=== PATIENT | female | born 1930 | race Caucasian/White ===

== ENCOUNTER 2016-04-22 16:23 | Observation (INO) | payer MEDICARE, BC ==
--- NOTE | 2016-04-22 16:39 | HP ---
Chief Complaint - Chief Complaint Date of Service: 04/22/16 Time of Service: 16:38 Chief Complaint: loss of appetite and difficulty in eating and drinking. History of Present Illness: Patient is a 85-year-old WF who lives at home with a history of Mnire's disease, osteoporosis, B12 deficiency, chronic low back pain who had URI symptoms for the last 3-4 days and had difficulty in eating and drinking since then. She lost 5-6 pounds due to poor oral intake and was significantly orthostatic in the office with a systolic dropping by 30 mm Hg while standing. She was admitted for further care and treatment with IV fluids on 04/22/2015. Lying BP 92/60 HR 66/m; sitting BP 76/60 HR 76/m; standing 62/58 HR 92/m. - Patient's Past Medical History Additional info: PAST MEDICAL HISTORY: Mnire's disease 2000 LT shunt placed in 2002; osteoporosis, chronic LBP, HLD, B12 deficiency, RUL pneumonia 08/2014. . Patient History - Cancer: No Hx of Cancer Additional Info: PAST SURGICAL HISTORY: Appendectomy 1944; all teeth extraction 1959'; S/P KEY/BSO 1964; LT shunt placed for Mnire's disease 2002; bilateral cataract surgery 2004; RT arthroscopic knee surgery 2005; epidural steroid shots right-sided L4-L5 2007; lumbar disc fusion 2007; lithotripsy 2010. - Family History Father Family History - Medical: , Other Family History - Cardiac/Respiratory: History Unknown Mother Family History - Medical: , No pertinent hx - Social History Living Situations: alone - Smoking Status: Never smoker Alcohol Use: none Drug Use: none Review Of Systems (GEN) - Review of Systems Generalized/Overall Review: Present: Weakness, Fatigue. Absent: Chills, Fever Respiratory: Present: Cough. Absent: Shortness of Breath Cardiac: Absent: Chest Pain, Edema, Palpitations Abdominal: Present: Nausea, Vomiting, Constipation - occassional Musculoskeletal: Present: Back Pain Neurological: Absent: Anxiety, Depressed Immunizations: IMMUNIZATION HX Immunizations Up to Date No History of Influenza Vaccine No Hx Pneumococcal Vaccination No Allergies/Adverse Reactions: Allergies Allergy/AdvReac Type Severity Reaction Status Date / Time risedronate sodium AdvReac Intermediate Nausea Verified 04/22/16 16:55 [From Actonel] Home Medications: HOME MEDICATIONS Aspirin [Aspirin Enteric Coated] 162 mg PO HS 08/22/14 [Last Taken 08/19/14] Cholecalciferol (Vitamin D3) [Vitamin D3] 5,000 unit PO 3XW 02/04/16 [Last Taken Unknown] Cyanocobalamin [Vitamin B-12] 1,000 mcg PO DAILY 02/04/16 [Last Taken Unknown] Fluticasone Propionate [Flonase] 2 spray NS DAILY 04/22/16 [Last Taken Unknown] Meclizine HCl [Antivert] 12.5 mg PO TID PRN 04/22/16 [Last Taken Unknown] Wheat Dextrin [Benefiber] 1 each PO DAILY PRN 04/22/16 [Last Taken Unknown] guaiFENesin/DEXTROMETHORPHAN [Robitussin-Dm] 10 ml PO Q6H PRN 04/22/16 [Last Taken Unknown] Exam - Exam Vital Signs: Vital Signs - Last Taken Temp 35.3 C L 02/11/16 21:19 Pulse Resp BP 115/62 02/11/16 21:57 Pulse Ox Constitutional: Present: No distress, Elderly, Thin and frail ENT Exam: Present: hearing grossly normal, pharynx normal, TMs normal Eye Exam: bilateral eye: PERRL, EOMI Neck: Present: normal inspection, trachea midline Respiratory: Present: no accessory muscle use, decreased breath sounds Cardiovascular/Chest: Present: regular rate, rhythm, systolic murmur. Absent: tachycardia Peripheral Pulses: carotid (R): 2+, carotid (L): 2+ Abdomen: Present: Normal bowel sounds, soft, nontender /Rectal: Present: Exam deferred Extremity: Present: non-tender, normal inspection, no pedal edema Skin Exam: Present: normal color, warm/dry Appearance: Present: appropriate appearance, appropriate insight, neat Eye contact: Present: cooperative, good eye contact, normal speech Thoughts: Present: normal thought pattern, normal mood /affect Diagnostic Studies: Laboratory Tests 04/22/16 16:28 WBC 4.4 Hgb 11.8 L Hct 36.0 L Plt Count 168 04/22/16 16:28 Plasma Sodium 135 Potassium 4.4 Chloride 98 Carbon Dioxide 25.4 BUN 31 H D Creatinine 1.50 H D Est GFR (Non-Af Amer) 35 L D Random Glucose 90 Calcium Adj for Albumin 9.5 Total Bilirubin 0.6 AST 25 ALT 22 Alkaline Phosphatase 64 Total Protein 7.7 Assessment/Plan - Narrative Narrative: 1. Orthostatic changes: Bolus normal saline 500 mL 1. 2. Dehydration: BUN/CR at 31/1.50. Continue IV fluids D5NS at 100 mL an hour. Check BMP on 04/23/2016. 3. URI symptoms with decreased oral intake and wheezing: Obtain CXR for possible pneumonia. 4. 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 5. Osteoporosis: Stable, chronic. Vitamin D3 2000 units daily. 6. Chronic low back pain: Stable S/P lumbar disc fusion.
[2016-04-22] MEDS ORDERED: NORMAL SALINE 500 ML IV ONE (16:59)
[2016-04-22] MEDS: ONDANSETRON HCL/PF 2 MG/ML VIAL IV SCH (17:35)
[2016-04-22] MEDS: DEXTROSE 5%-NORMAL SALINE 1,000 ML IV PRN (18:07)
[2016-04-22] MEDS: guaiFENesin/DEXTROMETHORPHAN 118 ML BTL PO PRN (19:13)
[2016-04-22] MEDS ORDERED: NORMAL SALINE 1,000 ML IV PRN (19:27)
[2016-04-22] MEDS ORDERED: NORMAL SALINE 500 ML IV PRN ×2 (19:28→19:59)
[2016-04-23] MEDS: DEXTROSE 5%-NORMAL SALINE 1,000 ML IV PRN ×2 (04:50→15:14)
[2016-04-23 06:16] LABS: Anion Gap 12.1 mmol/L (6.8-13.8); BUN/Creatinine Ratio 20.2 (9.0-21.6); Calcium * 8.9 mg/dL (7.9-10.9); Carbon Dioxide 25.7 mmol/L (24-32.6); Estimated Creat Clear 28.1; Potassium 3.8 mmol/L (3.4-4.6)
[2016-04-23] MEDS: ONDANSETRON HCL/PF 2 MG/ML VIAL IV SCH ×4 (07:09→17:10)
[2016-04-23] MEDS ORDERED: AZITHROMYCIN 500 MG in DEXTROSE 5 % IN WATER 250 ML IV STA ×2 (14:42)
[2016-04-23] MEDS ORDERED: ALBUTEROL SULFATE/IPRATROPIUM 3 ML NEBU IH STA (14:43)
[2016-04-23] MEDS: guaiFENesin/DEXTROMETHORPHAN 118 ML BTL PO PRN (15:34)
--- NOTE | 2016-04-23 16:08 | DS ---
(1) Orthostatic hypotension Problem: Acute (2) Mild dehydration Problem: Acute (3) Meniere disease Problem: Chronic (4) B12 deficiency Problem: Chronic (5) Osteoporosis Problem: Chronic Description of Stay: DATE OF ADMISSION: 04/22/2016. DATE OF ADMISSION: 04/23/2016. HOSPITAL COURSE: Patient is a 85-year-old WF with a H/O Mnire's disease, osteoporosis, B12 deficiency and chronic low back pain was brought to the office by her son for evaluation of weight loss due to decreased oral intake after having a URI for the last 3-4 days. She was significantly orthostatic in the office with a systolic dropping by 30 mm Hg while standing. She was admitted on 04/22/2016 for IV fluids. Potassium was supplemented. She was started on azithromycin 500 mg IV daily for bronchitis. CXR showed severe COPD but no infiltrate. BUN/CR improved from 31/1.50 [04/22/2016] 2022/1.09 [04/23] with improvement in orthostatics and dizziness. She was discharged on oral azithromycin. Her condition at the time of discharge was stable. Procedures Performed: none Discharge Disposition: Home self care Disposition: Home self-care Condition: Undetermined Discharge Activity: Activity as tolerated Discharge Diet: Low salt, High Fiber Referrals: Jerry Garzon MD [Primary Care Provider] - Additional Patient Instructions (free text): Follow-up with Dr. Garzon on April 30 at 10:15 a.m. Prescriptions (Any new or edited meds): Azithromycin [Zithromax] 500 mg PO DAILY #4 tab Complete Home Medications List: Complete Home Medication List: Aspirin [Aspirin Enteric Coated] 162 mg PO HS 08/22/14 Cholecalciferol (Vitamin D3) [Vitamin D3] 5,000 unit PO 3XW 02/04/16 Cyanocobalamin [Vitamin B-12] 1,000 mcg PO DAILY 02/04/16 Fluticasone Propionate [Flonase] 2 spray NS DAILY 04/22/16 Wheat Dextrin [Benefiber] 1 each PO DAILY PRN 04/22/16 guaiFENesin/DEXTROMETHORPHAN [Robitussin-Dm] 10 ml PO Q6H PRN 04/22/16 Azithromycin [Zithromax] 500 mg PO DAILY #4 tab 04/23/16
[2016-04-23 17:07] VITALS: BP 98/51
[2016-04-23] MEDS ORDERED: POTASSIUM CHLORIDE 20 MEQ TABLET.SA PO ONE (17:30)
[2016-04-23] MEDS ORDERED: ALBUTEROL SULFATE/IPRATROPIUM 3 ML NEBU IH ONE (18:30)
== END 2016-04-23 19:00 | disposition home or self-care (01) ==
LOC: MS 16:23
PROVIDERS: ADMIT Internal Medicine; ATTEND Internal Medicine
DX: I95.1 Orthostatic hypotension (principal); E86.0 Dehydration; H81.09 Meniere's disease, unspecified ear; E53.8 Deficiency of other specified B group vitamins; M81.0 Age-related osteoporosis without current pathological fracture; Z79.82 Long term (current) use of aspirin
CPT/HCPCS: 36415; 71020; 80048; 87070; 94640; 96361; 96365; 96375; G0378; G0379

== ENCOUNTER 2018-02-24 17:22 | Observation (INO) | payer BC, MEDICARE ==
[2018-02-24] MEDS ORDERED: ACETAMINOPHEN 325 MG TABLET PO ONE (17:37)
[2018-02-24 17:58] LABS: Hemoglobin 11.3 gm/dL (12.5-16.0); Mean Cell Volume 92.1 fl (78-100); Mean Corpuscular Hemoglobin 28.9 pg (27-31); Mean Corpuscular Hgb Conc 31.4 g/dl (32-36); Neutrophil # 4.6 K/mm3 (1.3-6.0); Neutrophil % 89.2 % (42-75.0); Platelet Count 208 K/mm3 (150-450); Red Blood Count 3.91 M/mm3 (4.2-5.4); Red Cell Distribution Width 13.6 % (11.5-14.0); White Blood Count 5.1 K/mm3 (4.0-10.5)
--- NOTE | 2018-02-24 18:03 | ERNOTE ---
Date of Service: 02/24/18 Time Seen by Provider: 02/24/18 17:40 Stated Complaint: shakey and light headed Presenting Symptoms:: cough, fever Immunizations: IMMUNIZATION HX Immunizations Up to Date Yes History of Influenza Vaccine Yes Hx Pneumococcal Vaccination Yes Allergies/Adverse Reactions: Allergies risedronate sodium [From Actonel] Adverse Reaction (Intermediate, Verified 02/24/18 17:27) Nausea Home Medications: HOME MEDICATIONS Aspirin [Aspirin Enteric Coated] 162 mg PO HS 08/22/14 [Last Taken 08/19/14] Cholecalciferol (Vitamin D3) [Vitamin D3] 5,000 unit PO 3XW 02/04/16 [Last Taken Unknown] Cyanocobalamin [Vitamin B-12] 1,000 mcg PO DAILY 02/04/16 [Last Taken Unknown] Wheat Dextrin [Benefiber] 1 each PO DAILY PRN 04/22/16 [Last Taken Unknown] Meclizine HCl 25 mg PO PRN PRN 02/24/18 [Last Taken Unknown] - History of Present Ilness Narrative: Elaine is a 87 year old female patient brought to the ED from home by her family for a cough and fever. This began abruptly in the past 2 hours. She reports feeling tired all day today but was otherwise in her usual state of health. She lives independently at home. 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 She is not aware of any sick contacts. She was a patient of Dr. Garzon and has not yet established with a new PCP. Date (Duration): 02/24/18 Timing: getting worse Frequency/Possible Cause: Reports: unknown cause Prior Treatment: Denies: recently seen Review of Systems - Review of Systems Constitutional: Present: fever, chills, fatigue, malaise. Absent: recent illness EYE: Absent: eye pain, eye discharge ENT: Absent: ear pain, nose congestion, sore throat Respiratory: Present: cough. Absent: shortness of breath, wheezing Cardiology: Absent: chest pain, syncope Gastrointestinal/Abdominal: Absent: nausea, abdominal pain Genitourinary: Absent: frequency, dysuria Musculoskeletal: Absent: muscle pain, joint pain Skin: Absent: rash, lesions Neurological: Absent: headache, dizziness/light-headedness Endocrine: Present: no symptoms reported Hematologic/Lymphatic: Absent: easy bruising, easy bleeding Psych: Present: no symptoms reported Medical History (Last Reviewed 02/24/18 @ 20:26 by Kendra Chacon NP) B12 deficiency Constipation Meniere disease Surgical History: Surgical History (Last Reviewed 02/24/18 @ 20:26 by Kendra Chacon NP) H/O knee surgery History of back surgery History of ear surgery Family History: Family History (Last Reviewed 02/24/18 @ 20:26 by Kendra Chacon NP) Other No pertinent family history Social History: Preferred Language Yi Smoking Status Never smoker Psych History No pertinent hx Alcohol Use none Drug Use none No Social History Section defined Physical Exam - Physical Exam General Appearance: Present: alert, mild distress, thin, other - Pleasant, appropriately dressed and groomed, shivering Head Exam: Present: normal inspection Neck: Present: normal inspection, nontender, supple Respiratory: Present: no respiratory distress, no accessory muscle use, decreased breath sounds, expiration (prolonged) Cardiovascular/Chest: Present: regular rate, rhythm, no murmur, normal peripheral pulses Gastrointestinal/Abdominal: Present: nontender, nondistended, soft Extremity Exam: Present: normal inspection, non-tender, no edema Neurological Exam: Present: alert, oriented, normal mood/affect, no motor/sensory deficits Skin Exam: Present: warm/dry, pallor ED Progress - Results and Orders Patient's Lab Results:: I have reviewed the patient's lab results. - Vital Signs Patient's Vital Signs:: I have reviewed the patient's vital signs. Vital Signs: Vital Signs 02/24/18 17:23 02/24/18 17:38 Temperature 38.7 C H 39.4 C H Pulse Rate 84 Respiratory Rate 16 Blood Pressure 92/42 O2 Sat by Pulse Oximetry 98 - X-Ray X-Ray #1 X-Ray: chest Interpretation: Reviewed by me X-ray Comments: Technique: PA and lateral views. Comparison: 04/22/2016 Findings: There is hyperinflation of the lung morrissey compatible with underlying emphysema. There is chronic nodular density in the right lung. There is new nodular densities in the left lung. This could be masslike consolidation but is worrisome for pulmonary mass. Chest CT was obtained for further evaluation. Deformity to the thoracolumbar spine is unchanged. There are granulomatous and atherosclerotic calcifications. There is pleural thickening and scarring in the apices. IMPRESSION: NODULAR DENSITIES IN BOTH LUNGS. EMPHYSEMA. CHEST CT PERFORMED FOR FURTHER EVALUATION. Electronically signed by Zay Lloyd M.D.. - CT/Ultrasound CT/Ultrasound Narrative: echnique: Multislice helical acquisition from a level above the thoracic inlet through the lung bases to the adrenal glands performed with IV contrast enhancement. Axial and coronal reformatted images performed. Individualized dose optimization technique was used for the performed procedure including automated exposure control, adjustment of the MA and or KV according to patient size and/or use of iterative reconstruction technique. Comparison: Chest x-ray done earlier same day 02/24/2018 Findings: There are atherosclerotic calcifications including coronary artery calcifications. Aorta is otherwise unremarkable. There is no significant, by size criteria, mediastinal or hilar lymphadenopathy. No pulmonary embolus identified. There is pleural thickening and scarring in both apices. There is some underlying emphysema. There is a spiculated mass right upper lobe that measures 16 mm on image #59 of sequence 4. There is some patchy consolidation in the anterior inferior left upper lobe which may be atelectasis but pneumonia must be considered clinically. There is a 9 mm pulmonary nodule right lower lobe image #64. There is a 14 mm nodule image #66 left lower lobe. There is a 16 mm nodule left lower lobe image #72. There is a 26 mm nodule left lower lobe image #77. Image #83 shows right lower lobe pulmonary nodule 13 mm. There is a 10 mm left lower lobe pulmonary nodule image #95 there is some dependent atelectasis. There is patchy consolidation in the right middle lobe. This may be atelectasis or developing pneumonia. IMPRESSION: 1. MULTIPLE BILATERAL PULMONARY MASSES HIGHLY SUSPICIOUS FOR PULMONARY METASTATIC DISEASE. 2. PATCHY AIRSPACE DISEASE RIGHT MIDDLE LOBE AND INFERIOR ANTERIOR LEFT UPPER LOBE ATELECTASIS VERSUS DEVELOPING PNEUMONIA. CONICAL CORRELATION IS NECESSARY. 3. COPD WITH SOME EARLY EMPHYSEMATOUS CHANGES. Electronically signed by Zay Lloyd M.D.. - Progress/Reassessment Chief Complaint: Fever Progress:: Improved Plan - Plan Plan: Chest CT results and need for further evaluation discussed with the patient and her son. The patient is tearful. Her PSI is level IV, indicating the need for inpatient admission. Dr. Cooper was contacted. The patient will be started on Zithromax and Rocephin for CAP. Blood cultures are pending. Departure Clinical Impression: Lung mass Pneumonia Qualifiers: Pneumonia type: due to unspecified organism Laterality: bilateral Lung location: unspecified part of lung Qualified Code(s): J18.9 - Pneumonia, unspecified organism - Departure Disposition: Still a patient Condition: Fair
[2018-02-24 18:13] LABS: Albumin * 3.6 gm/dl (3.4-5.0); BUN/Creatinine Ratio 20.4 (9.0-21.6); Bilirubin, Total 0.4 mg/dL (0.0-1.1); Ca. Corrected For Albumin 8.8 mg/dL (8.4-10.2); Calcium * 8.8 mg/dL (7.9-10.9); Carbon Dioxide 26.9 mmol/L (24-32.6); Potassium 3.9 mmol/L (3.4-4.6); Total Protein 7.1 gm/dL (6.2-8.2)
[2018-02-24 18:28] LABS: Urine Bilirubin Negative (NEGATIVE); Urine Ketone Negative (NEGATIVE); Urine Nitrite Negative (NEGATIVE); Urine Protein Negative (NEGATIVE); Urine Specific Gravity 1.025 SP.GR. (1.005-1.010); Urine Urobilinogen Normal (NORMAL)
[2018-02-24 18:44] LABS: Urine Blood 5 /ul (NEGATIVE)
[2018-02-24 18:45] LABS: Urine Color Yellow
[2018-02-24 18:46] LABS: Urine Appearance Clear (CLEAR)
[2018-02-24 18:47] LABS: Urine Bacteria TRACE; Urine RBC 0-5 /hpf (0-5); Urine WBC 0-5 /hpf (0-5)
[2018-02-24] MEDS ORDERED: AZITHROMYCIN 250 MG TABLET PO ONE (20:22)
[2018-02-24] MEDS ORDERED: DEXTROSE 5 % IN WATER 100 ML BAG IV ONE (20:27)
[2018-02-24] MEDS ORDERED: ONDANSETRON HCL/PF 2 MG/ML VIAL IV ONE (20:45)
--- NOTE | 2018-02-25 11:03 | HP ---
Chief Complaint - Chief Complaint Date of Service: 02/25/18 Time of Service: 08:40 Chief Complaint: Fever, chills, coughing. History of Present Illness: Mrs. Gillespie is an 87-year-old female admitted through ER last night with diagnosis of pneumonia and probable metastatic lung disease. She had a temperature of 39C, a productive cough, and shaking chills. Appropriate cultures were done in the emergency room including blood and sputum. Urinalysis was also done. Her initial chest x-ray has shown multiple nodular densities and CT chest was then ordered for further definition. This shows patchy infiltrates in both lungs suggestive of atelectasis versus pneumonia. There are multiple subcentimeter pulmonary nodules strongly suggesting of metastatic cancer. Patient is aware of these findings. This morning she is awake and alert and in no distress. 2 of her sons are here with her. She has eaten some breakfast this morning. This been no fever reported this morning. Medical History (Last Updated 02/24/18 @ 21:56 by Krupa Martinez RN) After cataract, bilateral H/O: hysterectomy Pneumonia B12 deficiency Constipation Meniere disease Surgical History: Surgical History (Last Updated 02/24/18 @ 21:55 by Krupa Martinez RN) Hx of appendectomy H/O knee surgery History of back surgery History of ear surgery Family History: Family History (Last Updated 02/24/18 @ 21:58 by Krupa Martinez RN) Father Mother Cancer Other No pertinent family history Social History: Patient Lives/Resources Home Utilized Occupation retired from [employer] Preferred Language Luxembourger Do you have any nondenominational or Yes: Presbytarian cultural preference? Smoking Status Never smoker Have you smoked in the past 12 No months Do you dip or chew tobacco No Psych History No pertinent hx Alcohol Use none Drug Use none No Social History Section defined Review Of Systems (GEN) - Review of Systems Generalized/Overall Review: Present: Weakness, Malaise, Weight loss EENTM: Present: No Symptoms Reported Respiratory: Present: Cough, Shortness of Breath, Other - She has had pneumonia about 4 times in the last 7 years. Cardiac: Present: No Symptoms Reported Abdominal: Present: No Symptoms Reported Genitourinary: Present: No Symptoms Reported Musculoskeletal: Present: No Symptoms Reported Neurological: Present: No Symptoms Reported Skin: Present: No Symptoms Reported Endocrine: Present: No Symptoms Reported Immunizations: IMMUNIZATION HX Immunizations Up to Date Yes History of Influenza Vaccine Yes Hx Pneumococcal Vaccination Yes Allergies/Adverse Reactions: Allergies Allergy/AdvReac Type Severity Reaction Status Date / Time risedronate sodium AdvReac Intermediate Nausea Verified 02/24/18 17:27 [From Actonel] Home Medications: HOME MEDICATIONS Aspirin [Aspirin Enteric Coated] 162 mg PO HS 08/22/14 [Last Taken 02/23/18 21:00] Cholecalciferol (Vitamin D3) [Vitamin D3] 5,000 unit PO 3XW 02/04/16 [Last Taken 02/23/18 21:00] Cyanocobalamin [Vitamin B-12] 1,000 mcg PO DAILY 02/04/16 [Last Taken 02/23/18 21:00] Wheat Dextrin [Benefiber] 1 each PO DAILY PRN 04/22/16 [Last Taken 02/23/18] Meclizine HCl 25 mg PO PRN PRN 02/24/18 [Last Taken Unknown] Exam - Exam Vital Signs: Vital Signs - Last Taken Temp 37.2 C 02/25/18 09:00 Pulse 88 02/25/18 09:00 Resp 20 02/25/18 09:00 BP 104/50 02/25/18 09:00 Pulse Ox 95 02/25/18 09:00 Constitutional: Present: Alert, Oriented x3, Cooperative, Well developed, Elderly, Thin and frail ENT Exam: Present: normal ENT inspection, hearing grossly normal, pharynx normal, TMs normal, hard of hearing Eye Exam: bilateral eye: normal inspection, PERRL, EOMI Neck: Present: non-tender, full range of motion, supple, normal inspection, trachea midline, lymphadenopathy (R), lymphadenopathy (L) Back Exam: Present: normal inspection, no CVA tenderness, no vertebral tenderness Breasts: Present: Exam deferred Respiratory: Present: chest non-tender, lungs clear, decreased breath sounds Cardiovascular/Chest: Present: normal peripheral pulses, regular rate, rhythm, extra beats Peripheral Pulses: carotid (R): 2+, carotid (L): 2+, femoral (R): 2+, femoral (L): 2+, dorsalis-pedis (R): 2+, dorsalis-pedis (L): 2+, radial (R): 2+, radial (L): 2+ Abdomen: Present: Normal bowel sounds, soft, nondistended, no rebound tenderness, no hepatospenomegaly, no masses, tender - In the left lower quadrant /Rectal: Present: Exam deferred Extremity: Present: normal range of motion, non-tender, normal inspection, no pedal edema, no calf tenderness, normal capillary refill Skin Exam: Present: normal color, warm/dry, no cyanosis Lymphatic: Present: other - cervical adenopathy Neurologic: Present: sand miller II-XII nml as tested, no motor/sensory deficits, alert, normal mood/affect, oriented x 3 Appearance: Present: appropriate appearance, appropriate insight, neat, no memory impairment Eye contact: Present: cooperative, good eye contact, normal speech Thoughts: Present: normal thought pattern, no apparent hallucination, normal mood /affect Diagnostic Studies: Abnormal Lab Results 02/24/18 02/24/18 02/24/18 Range/Units 17:56 17:56 18:02 RBC 3.91 L (4.2-5.4) M/mm3 Hgb 11.3 L (12.5-16.0) gm/dL Hct 36.0 L (37.0-47.0) % MCHC 31.4 L (32-36) g/dl Neutrophils % 89.2 H (42-75.0) % Lymphocytes % 8.6 L (20-51) % Lymphocytes # 0.44 L (1.5-3.5) k/mm3 Est GFR (Non-Af Amer) 54 L D (60-130) mL/min Urine Blood 5 H (NEGATIVE) /ul Laboratory Results WBC 5.1 K/mm3 (4.0-10.5) 02/24/18 17:56 RBC 3.91 M/mm3 (4.2-5.4) L 02/24/18 17:56 Hgb 11.3 gm/dL (12.5-16.0) L 02/24/18 17:56 Hct 36.0 % (37.0-47.0) L 02/24/18 17:56 MCV 92.1 fl (78-100) 02/24/18 17:56 MCH 28.9 pg (27-31) 02/24/18 17:56 MCHC 31.4 g/dl (32-36) L 02/24/18 17:56 RDW 13.6 % (11.5-14.0) 02/24/18 17:56 Plt Count 208 K/mm3 (150-450) 02/24/18 17:56 MPV 9.0 fl (8-12.5) 02/24/18 17:56 Immature Gran % (Auto) 0.40 % (0.001-0.429) 02/24/18 17:56 Immature Gran # (Auto) 0.02 K/mm3 (0.000-0.0310) 02/24/18 17:56 Neutrophils % 89.2 % (42-75.0) H 02/24/18 17:56 Lymphocytes % 8.6 % (20-51) L 02/24/18 17:56 Monocytes % 0.4 % (0.0-9) 02/24/18 17:56 Eosinophils % 1.2 % (0.0-3.0) 02/24/18 17:56 Basophils % 0.2 % (0.0-1.0) 02/24/18 17:56 Nucleated RBC % 0.0 k/mm3 (0-1) 02/24/18 17:56 Neutrophils # 4.6 K/mm3 (1.3-6.0) 02/24/18 17:56 Lymphocytes # 0.44 k/mm3 (1.5-3.5) L 02/24/18 17:56 Monocytes # 0.0 k/mm3 (0.0-1.0) 02/24/18 17:56 Eosinophils # 0.1 k/mm3 (0.0-0.7) 02/24/18 17:56 Absolute Basophils 0.0 k/mm3 (0.0-0.1) 02/24/18 17:56 Sodium 140 mmol/L (132-142) 02/24/18 17:56 Plasma Sodium 140 mmol/L (130-142) 02/24/18 17:56 Potassium 3.9 mmol/L (3.4-4.6) 02/24/18 17:56 Chloride 105 mmol/L (97-106) 02/24/18 17:56 Carbon Dioxide 26.9 mmol/L (24-32.6) 02/24/18 17:56 Anion Gap 12.0 mmol/L (6.8-13.8) 02/24/18 17:56 BUN 21 mg/dL (3-23) 02/24/18 17:56 Creatinine 1.03 mg/dL (0.4-1.4) 02/24/18 17:56 Est GFR (Non-Af Amer) 54 mL/min (60-130) L D 02/24/18 17:56 BUN/Creatinine Ratio 20.4 (9.0-21.6) 02/24/18 17:56 Random Glucose 89 mg/dL (70-110) 02/24/18 17:56 Lactic Acid, Venous 1.9 mmol/L (0.4-2.0) 02/24/18 17:56 Calcium 8.8 mg/dL (7.9-10.9) 02/24/18 17:56 Calcium Adj for Albumin 8.8 mg/dL (8.4-10.2) 02/24/18 17:56 Total Bilirubin 0.4 mg/dL (0.0-1.1) 02/24/18 17:56 AST 24 U/L (0-48) 02/24/18 17:56 ALT 21 U/L (19-67) 02/24/18 17:56 Alkaline Phosphatase 109 U/L (50-170) 02/24/18 17:56 Total Protein 7.1 gm/dL (6.2-8.2) 02/24/18 17:56 Albumin 3.6 gm/dl (3.4-5.0) 02/24/18 17:56 Urine Color Yellow 02/24/18 18:02 Urine Appearance Clear (CLEAR) 02/24/18 18:02 Urine pH 6.0 pH (5.0-7.0) 02/24/18 18:02 Ur Specific [place] 1.025 SP.GR. (1.005-1.010) 02/24/18 18:02 Urine Protein Negative mg/dL (NEGATIVE) 02/24/18 18:02 Urine Glucose (UA) Negative mg/dL (NEGATIVE) 02/24/18 18:02 Urine Ketones Negative mg/dL (NEGATIVE) 02/24/18 18:02 Urine Blood 5 /ul (NEGATIVE) H 02/24/18 18:02 Urine Nitrate Negative (NEGATIVE) 02/24/18 18:02 Urine Bilirubin Negative mg/dl (NEGATIVE) 11/08/18 18:02 Urine Urobilinogen Normal EU/dl (NORMAL) 02/24/18 18:02 Ur Leukocyte Esterase Negative /ul (NEGATIVE) 02/24/18 18:02 Urine RBC 0-5 /hpf (0-5) 02/24/18 18:02 Urine WBC 0-5 /hpf (0-5) 02/24/18 18:02 Ur Epithelial Cells None seen /hpf (0-5) 02/24/18 18:02 Urine Bacteria Trace (NONE) 02/24/18 18:02 Urine Culture Comments No culture indicated 02/24/18 18:02 Influenza Type A Ag Negative (NEGATIVE) 02/24/18 17:56 Influenza Type B Ag Negative (NEGATIVE) 02/24/18 17:56 Assessment/Plan - Narrative Narrative: 1. IV antibiotics symptoms started 2. I discussed her chest CT findings with her this morning. 3. Schedule to see shim plug cutter on an outpatient basis 4. Discussed home health with she and her symptoms this morning. - Assessment/Plan (1) Pneumonia Problem: Acute Qualifiers: Pneumonia type: due to unspecified organism Laterality: bilateral Lung location: unspecified part of lung Qualified Code(s): J18.9 - Pneumonia, unspecified organism (2) Multiple pulmonary nodules Problem: Acute (3) Weight loss, non-intentional Problem: Acute
[2018-02-25] MEDS ORDERED: AZITHROMYCIN 250 MG TABLET PO SCH (11:15)
[2018-02-25] MEDS ORDERED: CEFUROXIME AXETIL 500 MG TABLET PO SCH (11:15)
--- NOTE | 2018-02-25 11:33 | DS ---
(1) Pneumonia Problem: Acute Qualifiers: Pneumonia type: due to unspecified organism Laterality: bilateral Lung location: unspecified part of lung Qualified Code(s): J18.9 - Pneumonia, unspecified organism (2) Multiple pulmonary nodules Problem: Acute (3) Weight loss, non-intentional Problem: Acute Description of Stay: Elaine Gillespie is an 87-year-old female who presented to ER with fever cough shaking chills and weakness. She was febrile on arrival at time 39C. Chest x-ray revealed multiple pulmonary nodules and CT scan showed atelectasis versus pneumonia in both lungs as well as multiple subcentimeter nodules strongly suggestive of metastatic disease to the lungs. She was admitted on IV antibiotics. This morning she is considerably improved as had not had any fever or chills. Her coughing has already subsided. She is breathing on room air and oxygenating well. She admits that she has been losing weight for about 6 months. She states she usually eats breakfast but then doesn't eat lunch or supper but just snacks through the day. She has never been a smoker. She is weakened and generally doesn't feel well most of the time. 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 The need for penitentiary is monitoring of vital signs including weight, management of medications, and education. The need for home health care skilled services is directly related to the time spent [id number] with Mrs. Gillespie. Procedures Performed: none Results and Findings: Lab Pending Results 02/24/18 17:56: WBC 5.1, RBC 3.91 L, Hgb 11.3 L, Hct 36.0 L, MCV 92.1, MCH 28.9, MCHC 31.4 L, RDW 13.6, Plt Count 208, MPV 9.0, Immature Gran % (Auto) 0.40, Immature Gran # (Auto) 0.02, Neutrophils % 89.2 H, Lymphocytes % 8.6 L, Monocytes % 0.4, Eosinophils % 1.2, Basophils % 0.2, Nucleated RBC % 0.0, Neutrophils # 4.6, Lymphocytes # 0.44 L, Monocytes # 0.0, Eosinophils # 0.1, Absolute Basophils 0.0 02/24/18 17:56: Sodium 140, Plasma Sodium 140, Potassium 3.9, Chloride 105, Carbon Dioxide 26.9, Anion Gap 12.0, BUN 21, Creatinine 1.03, Est GFR (Non-Af Amer) 54 L D, BUN/Creatinine Ratio 20.4, Random Glucose 89, Calcium 8.8, Calcium Adj for Albumin 8.8, Total Bilirubin 0.4, AST 24, ALT 21, Alkaline Phosphatase 1 09, Total Protein 7.1, Albumin 3.6 02/24/18 17:56: Lactic Acid, Venous 1.9 02/24/18 17:56: Influenza Type A Ag Negative, Influenza Type B Ag Negative 02/24/18 18:02: Urine Color Yellow, Urine Appearance Clear, Urine pH 6.0, Ur Specific [place] 1.025, Urine Protein Negative, Urine Glucose (UA) Negative, Urine Ketones Negative, Urine Blood 5 H, Urine Nitrate Negative, Urine Bilirubin Negative, Urine Urobilinogen Normal, Ur Leukocyte Esterase Negative, Urine RBC 0-5, Urine WBC 0-5, Ur Epithelial Cells None seen, Urine Bacteria Trace, Urine Culture Comments No culture indicated Discharge Location: Home Disposition: Home Health Service Home Health Agency: [facility] Home Health Condition: Fair Face to Face Encounter completed per [facility] Guidelines: Yes - F2F done this morning for home health. See below. Discharge Activity: Activity as tolerated Discharge Diet: General/regular food Problem Oriented Discharge Instructions to Patient/Family: Community-Acquired Pneumonia, Adult, [id number] Additional Patient Instructions (free text): -Please make TCM appointment unless group home discharge. Thank you! Prachi @ ext:[phone]. [facility] new. Please call report and fax orders upon discharge. Nursing and bath aide. Make referral to Pulmonology( either in [facility] or at [facility]. Whichever can give her to appointment the quickest) regarding CT scan results (bilateral lung masses, suspicious for metastatic disease) Follow up appointment with Dr. Cooper on Wednesday03/07/18 at 2:30pm. Pulmonology appointment with Dr. Barrett on Wednesday02/28/18 at 3:00pm at [facility]. Prescriptions (Any new or edited meds): Azithromycin [Zithromax] 500 mg PO ONCE #1 tablet Cefuroxime Axetil [Ceftin] 500 mg PO Q12H #20 tablet Complete Home Medications List: Complete Home Medication List: Aspirin [Aspirin Enteric Coated] 162 mg PO HS 08/22/14 Cholecalciferol (Vitamin D3) [Vitamin D3] 5,000 unit PO 3XW 02/04/16 Cyanocobalamin [Vitamin B-12] 1,000 mcg PO DAILY 02/04/16 Wheat Dextrin [Benefiber] 1 each PO DAILY PRN 04/22/16 Meclizine HCl 25 mg PO PRN PRN 02/24/18 Azithromycin [Zithromax] 500 mg PO ONCE #1 tablet 02/25/18 Cefuroxime Axetil [Ceftin] 500 mg PO Q12H #20 tablet 02/25/18 Amb Orders for Discharge: Consult Physician Location: None Selected
[2018-02-25 12:56] VITALS: BP 121/51
== END 2018-02-25 13:00 | disposition home health service (06) ==
LOC: ER 17:22 → MS 20:26 → INTOOBSV 20:26 → MS 21:10
PROVIDERS: ADMIT Family Medicine; ATTEND Family Medicine
CPT/HCPCS: 36415; 71020; 71046; 71260; 80053; 81001; 83605; 85025; 87040; 87400; 87449; 96365; 96375; 99285; G0378; J2405

== ENCOUNTER 2018-03-26 14:21 | Observation (INO) | payer BC, MEDICARE ==
[2018-03-26] MEDS ORDERED: PROCHLORPERAZINE EDISYLATE 5 MG/ML VIAL IV ONE (14:55)
[2018-03-26] MEDS ORDERED: NORMAL SALINE 1,000 ML IV ONE (14:55)
[2018-03-26 15:20] LABS: Hematocrit 36.8 % (37.0-47.0); Hemoglobin 11.5 gm/dL (12.5-16.0); Mean Cell Volume 90.6 fl (78-100); Mean Corpuscular Hemoglobin 28.3 pg (27-31); Mean Corpuscular Hgb Conc 31.3 g/dl (32-36); Mean Platelet Volume 9.5 fl (8-12.5); Neutrophil # 2.4 K/mm3 (1.3-6.0); Platelet Count 172 K/mm3 (150-450); Red Blood Count 4.06 M/mm3 (4.2-5.4); Red Cell Distribution Width 13.3 % (11.5-14.0); White Blood Count 3.4 K/mm3 (4.0-10.5)
[2018-03-26 15:43] LABS: ALT 21 U/L (19-67); AST 26 U/L (0-48); Albumin * 3.5 gm/dl (3.4-5.0); Alkaline Phosphatase * 87 U/L (50-170); Anion Gap 8.3 mmol/L (6.8-13.8); BUN/Creatinine Ratio 22.9 (9.0-21.6); Bilirubin, Total 0.5 mg/dL (0.0-1.1); Blood Urea Nitrogen 19 mg/dL (3-23); Ca. Corrected For Albumin 9.3 mg/dL (8.4-10.2); Calcium * 9.2 mg/dL (7.9-10.9); Carbon Dioxide 29.6 mmol/L (24-32.6); Chloride 106 mmol/L (97-106); Glucose * 94 mg/dL (70-110); Lipase 238 U/L (73-393); Potassium 3.9 mmol/L (3.4-4.6); Sodium 140 mmol/L (132-142); Troponin I Less than 0.017 ng/mL (0.00-0.10)
[2018-03-26 16:44] LABS: Urine Appearance Clear (CLEAR); Urine Bilirubin Negative (NEGATIVE); Urine Color Yellow; Urine Ketone Negative (NEGATIVE)
[2018-03-26 16:45] LABS: Urine Bacteria None Seen; Urine Blood 5 /ul (NEGATIVE); Urine Nitrite Negative (NEGATIVE); Urine Protein Negative (NEGATIVE); Urine RBC 0-5 /hpf (0-5); Urine Urobilinogen Normal (NORMAL); Urine WBC 0-5 /hpf (0-5)
[2018-03-26] MEDS ORDERED: MECLIZINE HCL 25 MG TABLET PO ONE (17:25)
--- NOTE | 2018-03-26 18:23 | ERNOTE ---
Medical Problem HPI - Narrative Date of Service: 03/26/18 - General Chief Complaint: Nausea/Vomiting Time Seen by Provider: 03/26/18 14:43 Source: patient, family Exam Limitations: no limitations - Immun/Allergies/Home Medications Immunizations: IMMUNIZATION HX Immunizations Up to Date Yes History of Influenza Vaccine Yes Hx Pneumococcal Vaccination Yes Allergies/Adverse Reactions: Allergies risedronate sodium [From Actonel] Adverse Reaction (Intermediate, Verified 03/26/18 18:23) Nausea Home Medications: HOME MEDICATIONS Aspirin [Aspirin Enteric Coated] 162 mg PO HS 08/22/14 [Last Taken 02/23/18 21:00] Cholecalciferol (Vitamin D3) [Vitamin D3] 5,000 unit PO 3XW 02/04/16 [Last Taken 02/23/18 21:00] Cyanocobalamin [Vitamin B-12] 1,000 mcg PO DAILY 02/04/16 [Last Taken 02/23/18 21:00] Wheat Dextrin [Benefiber] 1 ea PO DAILY PRN 04/22/16 [Last Taken 02/23/18] Meclizine HCl 25 mg PO PRN PRN 02/24/18 [Last Taken Unknown] polyethylene glycol 3350 17 gram/dose oral powder 17 g PO DAILY #510 g 03/07/18 [Last Taken Unknown] - History of Present History Narrative: Patient presents to the ED for dizzines and nausea with dry heaves. This started today. She has a Hx of Meniere's Disease. She took Meclizine but this did not help. She has been bedbound with these Sx today. EMS was called and she was brought to the ED. She complains of mild headache, nausea and dizziness. She denies CP or SOB. No abdominal pain. This is worse with movement. No acute focal N/T/W. Timing: constant Severity: severe Modifying Factors - (Improves): Present: other - nothing Modifying Factors - (Worsens): Present: movement Review of Systems - Review of Systems Constitutional: Absent: fever EYE: Present: no symptoms reported ENT: Absent: sore throat Respiratory: Absent: shortness of breath Cardiology: Absent: chest pain Gastrointestinal/Abdominal: Present: nausea. Absent: abdominal pain Genitourinary: Absent: dysuria Skin: Absent: rash Neurological: Absent: weakness All Other Systems: All systems neg except as marked Medical History (Last Reviewed 03/26/18 @ 18:23 by Zay Nolen MD) Osteoporosis (Acute) Onset Date: Unknown Low blood pressure (Acute) Onset Date: Unknown B12 deficiency (Acute) Onset Date: Unknown Meniere disease (Acute) Onset Date: Unknown Constipation (Acute) Onset Date: Unknown After cataract, bilateral Onset Date: Unknown Pneumonia Onset Date: Unknown Pneumonia Onset Date: Unknown Surgical History: Surgical History (Last Reviewed 03/26/18 @ 18:23 by Zay Nolen MD) H/O colonoscopy Onset Date: Unknown unknown date H/O knee surgery Onset Date: Unknown H/O tooth extraction Onset Date: Unknown H/O: hysterectomy Onset Date: Unknown History of back surgery Onset Date: Unknown vale as well History of ear surgery Onset Date: Unknown Hx of appendectomy Onset Date: Unknown Family History: Family History (Last Reviewed 03/26/18 @ 18:23 by Zay Nolen MD) Father Mother Cancer eye cancer Other No pertinent family history Social History: Preferred Language Spanish Do you have any voodoo or Yes: [facility] cultural preference? Smoking Status Never smoker Psych History No pertinent hx Alcohol Use none Drug Use none (Last Updated 03/24/18 @ 12:00 by rGabiel Cooper DO) No Social History Section defined Physical Exam - Physical Exam General Appearance: Present: alert, other - chronically ill appearing Head Exam: Present: normal inspection, no evidence of injury Eye Exam: Normal inspection: bilateral, PERRL: bilateral Ears, Nose, Throat: Present: normal ENT inspection Neck: Present: normal inspection Respiratory: Present: no respiratory distress, no accessory muscle use Cardiovascular/Chest: Present: regular rate, rhythm Gastrointestinal/Abdominal: Present: normal bowel sounds, nontender, nondistended, soft Back Exam: Absent: CVA tenderness (R), CVA tenderness (L) Extremity Exam: Present: other - no deformity Neurological Exam: Present: alert, no motor/sensory deficits, other - no clear acute unilateral focla motor or sensory deificts Skin Exam: Present: normal color, warm/dry Progress - Results and Orders Patient's Lab Results:: I have reviewed the patient's lab results. - Vital Signs Patient's Vital Signs:: I have reviewed the patient's vital signs. Vital Signs: Vital Signs 03/26/18 14:22 Temperature 37.5 C Pulse Rate 90 Respiratory Rate 20 O2 Sat by Pulse Oximetry 95 - EKG EKG read: Interp. by me EKG Comments: Sinus daniela rate 59. Non-specific changes, inferior of unclear significance. No clear STEMI - X-Ray X-Ray #1 X-Ray: chest Interpretation: Interp. by me X-ray Comments: I reviewed official radiology report - CT/Ultrasound CT/Ultrasound Narrative: I reviewed official radiology report - Progress/Reassessment Chief Complaint: Nausea/Vomiting Progress Note-Subjective: 03/26/18 18:35 Patient did not improve with therapies here. She required significant assistance to walk here as both she and family felt she was too unsteady to go home. She lives alone at home. no clear evidence of stroke. Intractable dizziness. She does have inferior EKG changes compared with old EKG that are of uncertain clinical significance. Repeat troponin and tele monitoring would be reassuring in this case. Patient and family understand. D/W Dr Vu who agrees to see the patient in the hospital. Departure Clinical Impression: Dizziness, Gait instability, Risk for falls, Nonspecific ST-T wave electrocardiographic changes - Departure Disposition: Still a patient Condition: Stable
--- NOTE | 2018-03-26 20:47 | HP ---
Chief Complaint - Chief Complaint Date of Service: 03/26/18 Time of Service: 20:46 Chief Complaint: nausea/vomiting History of Present Illness: Elaine Gillespie, is an 87-year-old white female, with past medical history of Mnire's disease, chronic low back pain, recent pneumonia, who was admitted on 03/26/2018 because of " nausea and vomiting". On the morning of admission, the patient woke up with nausea and dry heaves. This was associated with mild headache and dizziness. The dizziness is described as vertigo-like. She has been mostly bedbound the whole day. She denies any constipation, diarrhea, abdominal pain, chest pain, slurring of speech or drooling of saliva. She took her meclizine which did not help. She was then brought to our emergency room where her labs were unremarkable except for mild anemia, a chest x-ray which showed multiple pulmonary masses on top of emphysema, and a head CT scan which showed no acute intracranial process. She was then admitted and started on IV fluids. Medical History (Last Reviewed 03/26/18 @ 19:18 by Aaliyah Hall RN) Osteoporosis (Acute) Onset Date: Unknown Low blood pressure (Acute) Onset Date: Unknown B12 deficiency (Acute) Onset Date: Unknown Meniere disease (Acute) Onset Date: Unknown Constipation (Acute) Onset Date: Unknown After cataract, bilateral Onset Date: Unknown Pneumonia Onset Date: Unknown Pneumonia Onset Date: Unknown Surgical History: Surgical History (Last Reviewed 03/26/18 @ 19:17 by Aaliyah Hall RN) H/O colonoscopy Onset Date: Unknown unknown date H/O knee surgery Onset Date: Unknown H/O tooth extraction Onset Date: Unknown H/O: hysterectomy Onset Date: Unknown History of back surgery Onset Date: Unknown vale as well History of ear surgery Onset Date: Unknown Hx of appendectomy Onset Date: Unknown Family History: Family History (Last Reviewed 03/26/18 @ 19:17 by Aaliyah Hall RN) Father Mother Cancer eye cancer Other No pertinent family history Social History: Patient Lives/Resources Home Utilized Occupation Retired Preferred Language Cape Verdean Do you have any amish or Yes: Presbyterian cultural preference? Smoking Status Never smoker Have you smoked in the past 12 No months Do you dip or chew tobacco No Psych History No pertinent hx Alcohol Use none Drug Use none (Last Updated 03/24/18 @ 12:00 by Grabiel Cooper DO) No Social History Section defined Review Of Systems (GEN) - Review of Systems Generalized/Overall Review: Present: Weakness. Absent: Chills, Fever EENTM: Absent: Blurred Vision Respiratory: Absent: Cough, Shortness of Breath Cardiac: Absent: Chest Pain, Edema, Palpitations Abdominal: Present: Nausea, Other - dry heaves. Absent: Vomiting, Abdominal Pain, Constipation, Diarrhea Genitourinary: Absent: Urgency, Frequency Musculoskeletal: Present: Back Pain Neurological: Present: Headache Immunizations: IMMUNIZATION HX Immunizations Up to Date Yes History of Influenza Vaccine Yes Hx Pneumococcal Vaccination Yes Allergies/Adverse Reactions: Allergies Allergy/AdvReac Type Severity Reaction Status Date / Time risedronate sodium AdvReac Intermediate Nausea Verified 03/26/18 18:23 [From Actonel] Home Medications: HOME MEDICATIONS Aspirin [Aspirin Enteric Coated] 162 mg PO HS 08/22/14 [Last Taken 02/23/18 21:00] Cholecalciferol (Vitamin D3) [Vitamin D3] 5,000 unit PO 3XW 02/04/16 [Last Taken 02/23/18 21:00] Cyanocobalamin [Vitamin B-12] 1,000 mcg PO DAILY 02/04/16 [Last Taken 02/23/18 21:00] Wheat Dextrin [Benefiber] 1 ea PO DAILY PRN 04/22/16 [Last Taken 02/23/18] Meclizine HCl 25 mg PO PRN PRN 02/24/18 [Last Taken Unknown] polyethylene glycol 3350 17 gram/dose oral powder 17 g PO DAILY #510 g 03/07/18 [Last Taken Unknown] Exam - Exam Vital Signs: Vital Signs - Last Taken Temp 36.7 C 03/26/18 19:51 Pulse 74 03/26/18 19:51 Resp 14 03/26/18 19:51 BP 145/62 03/26/18 19:51 Pulse Ox 96 03/26/18 19:51 Constitutional: Present: Alert, Oriented x3, Cooperative, Elderly, Thin and frail ENT Exam: Present: hearing grossly normal Eye Exam: bilateral eye: normal inspection, PERRL, EOMI Neck: Present: supple Respiratory: Present: decreased breath sounds, No rales, No wheezing Cardiovascular/Chest: Present: regular rate, rhythm, no JVD, no murmur Abdomen: Present: Normal bowel sounds, soft, nontender, nondistended Extremity: Present: no pedal edema, no calf tenderness Diagnostic Studies: Abnormal Lab Results 03/26/18 03/26/18 03/26/18 Range/Units 15:12 15:12 16:24 WBC 3.4 L (4.0-10.5) K/mm3 RBC 4.06 L (4.2-5.4) M/mm3 Hgb 11.5 L (12.5-16.0) gm/dL Hct 36.8 L (37.0-47.0) % MCHC 31.3 L (32-36) g/dl Immature Gran % (Auto) 0.60 H (0.001-0.429) % Lymphocytes # 0.71 L (1.5-3.5) k/mm3 BUN/Creatinine Ratio 22.9 H (9.0-21.6) Urine Blood 5 H (NEGATIVE) /ul Laboratory Results WBC 3.4 K/mm3 (4.0-10.5) L 03/26/18 15:12 RBC 4.06 M/mm3 (4.2-5.4) L 03/26/18 15:12 Hgb 11.5 gm/dL (12.5-16.0) L 03/26/18 15:12 Hct 36.8 % (37.0-47.0) L 03/26/18 15:12 MCV 90.6 fl (78-100) 03/26/18 15:12 MCH 28.3 pg (27-31) 03/26/18 15:12 MCHC 31.3 g/dl (32-36) L 03/26/18 15:12 RDW 13.3 % (11.5-14.0) 03/26/18 15:12 Plt Count 172 K/mm3 (150-450) 03/26/18 15:12 MPV 9.5 fl (8-12.5) 03/26/18 15:12 Immature Gran % (Auto) 0.60 % (0.001-0.429) H 03/26/18 15:12 Immature Gran # (Auto) 0.02 K/mm3 (0.000-0.0310) 03/26/18 15:12 Neutrophils % 69.0 % (42-75.0) 03/26/18 15:12 Lymphocytes % 20.7 % (20-51) 03/26/18 15:12 Monocytes % 8.2 % (0.0-9) 03/26/18 15:12 Eosinophils % 1.2 % (0.0-3.0) 03/26/18 15:12 Basophils % 0.3 % (0.0-1.0) 03/26/18 15:12 Nucleated RBC % 0.0 k/mm3 (0-1) 03/26/18 15:12 Neutrophils # 2.4 K/mm3 (1.3-6.0) 03/26/18 15:12 Lymphocytes # 0.71 k/mm3 (1.5-3.5) L 03/26/18 15:12 Monocytes # 0.3 k/mm3 (0.0-1.0) 03/26/18 15:12 Eosinophils # 0.0 k/mm3 (0.0-0.7) 03/26/18 15:12 Absolute Basophils 0.0 k/mm3 (0.0-0.1) 03/26/18 15:12 Sodium 140 mmol/L (132-142) 03/26/18 15:12 Plasma Sodium 140 mmol/L (130-142) 03/26/18 15:12 Potassium 3.9 mmol/L (3.4-4.6) 03/26/18 15:12 Chloride 106 mmol/L (97-106) 03/26/18 15:12 Carbon Dioxide 29.6 mmol/L (24-32.6) 03/26/18 15:12 Anion Gap 8.3 mmol/L (6.8-13.8) 03/26/18 15:12 BUN 19 mg/dL (3-23) 03/26/18 15:12 Creatinine 0.83 mg/dL (0.4-1.4) 03/26/18 15:12 Est GFR (Non-Af Amer) 69 mL/min (60-130) D 03/26/18 15:12 BUN/Creatinine Ratio 22.9 (9.0-21.6) H 03/26/18 15:12 Random Glucose 94 mg/dL (70-110) 03/26/18 15:12 Calcium 9.2 mg/dL (7.9-10.9) 03/26/18 15:12 Calcium Adj for Albumin 9.3 mg/dL (8.4-10.2) 03/26/18 15:12 Total Bilirubin 0.5 mg/dL (0.0-1.1) 03/26/18 15:12 AST 26 U/L (0-48) 03/26/18 15:12 ALT 21 U/L (19-67) 03/26/18 15:12 Alkaline Phosphatase 87 U/L (50-170) 03/26/18 15:12 Troponin I Less than 0.017 ng/mL (0.00-0.10) 03/26/18 15:12 Total Protein 7.0 gm/dL (6.2-8.2) 03/26/18 15:12 Albumin 3.5 gm/dl (3.4-5.0) 03/26/18 15:12 Lipase 238 U/L (73-393) 03/26/18 15:12 Urine Color Yellow 03/26/18 16:24 Urine Appearance Clear (CLEAR) 03/26/18 16:24 Urine pH 6.0 pH (5.0-7.0) 03/26/18 16:24 Ur Specific [place] 1.020 SP.GR. (1.005-1.010) 03/26/18 16:24 Urine Protein Negative mg/dL (NEGATIVE) 03/26/18 16:24 Urine Glucose (UA) Negative mg/dL (NEGATIVE) 03/26/18 16:24 Urine Ketones Negative mg/dL (NEGATIVE) 03/26/18 16:24 Urine Blood 5 /ul (NEGATIVE) H 03/26/18 16:24 Urine Nitrate Negative (NEGATIVE) 03/26/18 16:24 Urine Bilirubin Negative mg/dl (NEGATIVE) 03/26/18 16:24 Urine Urobilinogen Normal EU/dl (NORMAL) 03/26/18 16:24 Ur Leukocyte Esterase Negative /ul (NEGATIVE) 03/26/18 16:24 Urine RBC 0-5 /hpf (0-5) 03/26/18 16:24 Urine WBC 0-5 /hpf (0-5) 03/26/18 16:24 Ur Epithelial Cells 0-5 /hpf (0-5) 03/26/18 16:24 Urine Bacteria None seen (NONE) 03/26/18 16:24 Urine Culture Comments No culture indicated 03/26/18 16:24 Assessment/Plan - Assessment/Plan (1) Dry heaves Assessment: meniere's. will continue with IVF and zofran. Problem: Acute (2) Dizziness Assessment: meniere's. will continue with Meclizine Problem: Acute (3) Headache Assessment: menieres Problem: Acute Qualifiers: Headache type: unspecified Headache chronicity pattern: acute headache Intractability: intractable Qualified Code(s): R51 - Headache (4) Meniere disease Problem: Chronic (5) Osteoporosis Problem: Acute (6) Multiple pulmonary nodules Assessment: follows up with media services director in [facility] Problem: Acute (7) Nonspecific ST-T wave electrocardiographic changes Assessment: troponin negative Problem: Acute
[2018-03-26] MEDS ORDERED: MECLIZINE HCL 12.5 MG TABLET PO PRN (21:02)
[2018-03-26] MEDS ORDERED: ONDANSETRON HCL/PF 2 MG/ML VIAL IV PRN (21:03)
[2018-03-26] MEDS ORDERED: PSYLLIUM SEED 1 PACKET PACKET PO PRN (21:11)
[2018-03-26] MEDS ORDERED: ASPIRIN 81 MG TABLET.DR PO SCH (21:30)
[2018-03-27] MEDS ORDERED: POLYETHYLENE GLYCOL 3350 119 GM BTL PO SCH (09:00)
[2018-03-27] MEDS ORDERED: CYANOCOBALAMIN 1,000 MCG TABLET PO SCH (09:00)
--- NOTE | 2018-03-27 09:10 | DS ---
(1) Dry heaves Problem: Resolved (2) Dizziness Problem: Resolved (3) Headache Problem: Resolved Qualifiers: Headache type: unspecified Headache chronicity pattern: acute headache Intractability: intractable Qualified Code(s): R51 - Headache (4) Meniere disease Problem: Chronic (5) Osteoporosis Problem: Acute (6) Multiple pulmonary nodules Diagnosis(s): follows with Pulmonology in [facility] Problem: Acute (7) Nonspecific ST-T wave electrocardiographic changes Problem: Acute Description of Stay: Elaine Gillespie, is an 87-year-old white female, with past medical history of Mnire's disease, chronic low back pain, recent pneumonia, who was admitted on 03/26/2018 because of " nausea and vomiting". On the morning of admission, the patient woke up with nausea and dry heaves. This was associated with mild headache and dizziness. The dizziness is described as vertigo-like. She has been mostly bedbound the whole day. She denies any constipation, diarrhea, abdominal pain, chest pain, slurring of speech or drooling of saliva. She took her meclizine which did not help. She was then brought to our emergency room where her labs were unremarkable except for mild anemia, a chest x-ray which showed multiple pulmonary masses on top of emphysema, and a head CT scan which showed no acute intracranial process. She was then admitted and started on IV fluids. She was given IV zofran, Meclizine PRN. She improved clinicaly and is no longer having dry heaves today.She is stable to go home today. Will refer her to PT for vestibular rehab on outpatient basis. Procedures Performed: none Results and Findings: Lab Pending Results 03/26/18 15:12: WBC 3.4 L, RBC 4.06 L, Hgb 11.5 L, Hct 36.8 L, MCV 90.6, MCH 28.3, MCHC 31.3 L, RDW 13.3, Plt Count 172, MPV 9.5, Immature Gran % (Auto) 0.60 H, Immature Gran # (Auto) 0.02, Neutrophils % 69.0, Lymphocytes % 20.7, Monocytes % 8.2, Eosinophils % 1.2, Basophils % 0.3, Nucleated RBC % 0.0, Neutrophils # 2.4, Lymphocytes # 0.71 L, Monocytes # 0.3, Eosinophils # 0.0, Absolute Basophils 0.0 03/26/18 15:12: Sodium 140, Plasma Sodium 140, Potassium 3.9, Chloride 106, Carbon Dioxide 29.6, Anion Gap 8.3, BUN 19, Creatinine 0.83, Est GFR (Non-Af Amer) 69 D, BUN/Creatinine Ratio 22.9 H, Random Glucose 94, Calcium 9.2, Calcium Adj for Albumin 9.3, Total Bilirubin 0.5, AST 26, ALT 21, Alkaline Phosphatase 87, Troponin I Less than 0.017, Total Protein 7.0, Albumin 3.5, Lipase 238 03/26/18 16:24: Urine Color Yellow, Urine Appearance Clear, Urine pH 6.0, Ur Specific [place] 1.020, Urine Protein Negative, Urine Glucose (UA) Negative, Urine Ketones Negative, Urine Blood 5 H, Urine Nitrate Negative, Urine Bilirubin Negative, Urine Urobilinogen Normal, Ur Leukocyte Esterase Negative, Urine RBC 0-5, Urine WBC 0-5, Ur Epithelial Cells 0-5, Urine Bacteria None seen, Urine Culture Comments No culture indicated Discharge Location: Home Disposition: Home self-care Condition: Stable Discharge Activity: Activity as tolerated Referrals: Grabiel Cooper DO [Primary Care Provider] - Additional Patient Instructions (free text): follow up with her PCP next week. Prescriptions (Any new or edited meds): Promethazine HCl 12.5 mg PO Q8H PRN #14 tablet PRN Reason: Nausea And Vomiting Complete Home Medications List: Complete Home Medication List: Aspirin [Aspirin Enteric Coated] 162 mg PO HS 08/22/14 Cholecalciferol (Vitamin D3) [Vitamin D3] 5,000 unit PO 3XW 02/04/16 Cyanocobalamin [Vitamin B-12] 1,000 mcg PO DAILY 02/04/16 Wheat Dextrin [Benefiber] 1 ea PO DAILY PRN 04/22/16 Meclizine HCl 25 mg PO PRN PRN 02/24/18 polyethylene glycol 3350 17 gram/dose oral powder 17 g PO DAILY #510 g 03/07/18 Promethazine HCl 12.5 mg PO Q8H PRN #14 tablet 03/27/18 Amb Orders for Discharge: PT Evaluation and Treatment* Time Frame: 2 Days, Location: None Selected
[2018-03-27 10:17] VITALS: BP 153/65
[2018-03-28] MEDS ORDERED: CHOLECALCIFEROL 5,000 UNIT TABLET PO SCH (09:00)
== END 2018-03-27 10:16 | disposition home or self-care (01) ==
LOC: MS 14:21 → ER 14:21 → MS 19:00
PROVIDERS: ADMIT Internal Medicine; ATTEND Family Medicine
CPT/HCPCS: 36415; 70450; 71020; 71046; 80053; 81001; 83690; 84484; 85025; 93005; 96374; 99285; G0378